=== PATIENT | female | born 1995 ===

== ENCOUNTER 2023-04-10 14:41 | Emergency (ER) | payer OTHER, SELFPAY ==
--- NOTE | ~2023-04-10 | XR_ITS ---
EXAMINATION: XR ANKLE, RIGHT XR FOOT, RIGHT CLINICAL INFORMATION: Twisted COMPARISON: None available. TECHNIQUE: 2 views of the right ankle 3 views of the right foot FINDINGS: No acute visible fracture or dislocation. Ankle mortise is symmetric. Joint spaces and alignment are maintained. Soft tissue swelling overlying the lateral malleolus. XR/XR ankle RT min 3V IMPRESSION: 1. No acute visible fracture or dislocation. 2. Soft tissue swelling overlying the lateral malleolus.
--- NOTE | ~2023-04-10 | XR_ITS ---
EXAMINATION: XR ANKLE, RIGHT XR FOOT, RIGHT CLINICAL INFORMATION: Twisted COMPARISON: None available. TECHNIQUE: 2 views of the right ankle 3 views of the right foot FINDINGS: No acute visible fracture or dislocation. Ankle mortise is symmetric. Joint spaces and alignment are maintained. Soft tissue swelling overlying the lateral malleolus. XR/XR foot RT min 3V IMPRESSION: 1. No acute visible fracture or dislocation. 2. Soft tissue swelling overlying the lateral malleolus.
[2023-04-10 14:48] VITALS: BP 101/66; PULSE 79; RESP 18; TEMP 37.1; O2SAT 96; BMI 33.8
--- NOTE | 2023-04-10 15:58 | ED_ITS ---
HPI - Extremity Injury (Lower) General Chief Complaint: Extremity Injury, Lower Stated Complaint: r foot inj Time Seen by Provider: 04/10/23 15:58 Source: patient, RN notes reviewed and old records reviewed Mode of arrival: wheelchair History of Present Illness HPI Narrative: 28-year-old female with no significant past medical history presenting to the ED complaining of right ankle pain and swelling S/P jumping up and twisting ankle on way down around 1330 today at [facility] with daughter. Admits to falling to ground, denies head trauma or LOC. Denies injury to other area. Has not been ambulatory since incident secondary to pain MD complaint: ankle injury Related Data Allergies Allergy/AdvReac Type Severity Reaction Status Date / Time milk [MILK] AdvReac Unknown GAS Unverified 04/25/20 17:03 Review of Systems Review of Systems: Constitutional: No Fever, No Chills ENT/Mouth: No Ear Pain, No Nasal Congestion, No sore throat, No Rhinorrhea, No Swallowing Difficulty Cardiovascular: No Chest Pain, No SOB Respiratory: No Cough, No Sputum, No Wheezing Musculoskeletal: + joint pain, No Myalgias, + Joint Swelling Skin: No Skin Lesions, No rash Neuro: No Weakness, No Numbness, No Paresthesias Yes all other systems are reviewed and are negative Constitutional: Constitutional: Reports as per [facility] Past Medical History Attestation statement: The following information was validated with the patient. Source: old records reviewed Social History Social History Alcohol intake: never Smoked in Last 30 Days: No Use of substances other than those prescribed or required for medical reasons: No Advance Directives: No Advance Directives Information Provided: No Physical Exam Vital Signs: Vital Signs: Last Vital Signs Temp 98.7 F 04/10/23 14:48 Pulse 80 04/10/23 17:39 Resp 17 04/10/23 17:39 BP 106/64 04/10/23 17:39 Pulse Ox 97 04/10/23 17:39 O2 Del Method Room Air 04/10/23 17:39 BMI result Body Mass Index 33.8 Const: General: cooperative, healthy appearing and no acute distress Orientation/consciousness: patient oriented x3 Limitations: no limitations HEENT: Head: Yes normal to inspection and Yes atraumatic Ears: hearing grossly normal bilaterally General nose exam: Normal external nose present Face and sinus: Yes normal facial exam Eyes: General: appearance normal, both eyes and all related structures EOM: EOMs intact bilaterally Neck: Neck: Yes normal visual inspection and Yes no meningeal signs Resp: Effort & Inspection: normal respiratory effort and no respiratory distress Cardio: Rate: regular rate Skin: Rashes: no rashes Wounds: no wounds Neuro: General: patient oriented x3, tone normal and no meningeal signs Cranial nerves: Yes CN's II-XII intact bilaterally Gait exam (Neuro): Normal gait present Extrem: Other: Right ankle with noted swelling to lateral malleolus with diffuse tenderness. Limited ROM secondary to pain. Foot, tib-fib and knee nontender. Neurovascularly intact Course Course Course Narrative: XR foot RT min 3V/XR ankle RT min 3V IMPRESSION: 1.? No acute visible fracture or dislocation. 2.? Soft tissue swelling overlying the lateral malleolus. > NEMESIO wrap and crutches supplied Results discussed with patient including worrisome signs and symptoms and strict return precautions, and when to return to the emergency department. They verbalized understanding and feel safe for discharge at this time. Medications Administered Discontinued Medications Generic Name Dose Route Start Last Admin Trade Name Freq PRN Reason Stop Dose Admin Ibuprofen 800 mg 04/10/23 17:19 04/10/23 17:34 Ibuprofen 800 Mg Tablet PO 04/10/23 17:20 Not Given ONCE ONE Medical Decision Making Medical Decision Making [facility] Narrative: 28-year-old female with no significant past medical history presenting to the ED complaining of left ankle pain and swelling S/P jumping up and twisting ankle on way down around 1330 today at [facility] with daughter. On exam vital signs stable, NAD, nontoxic appearing, physical exam as noted above with right ankle swelling and tender. Decreased ROM. Concern for sprain versus fracture. Low suspicion for septic joint/arthritis or DVT Plan: X-rays Please refer to course for remaining clinical decision making, interpretation of labs/imaging results, and discussions with consultants and/or family members. Differential Diagnosis Differential Diagnoses: The differential diagnosis associated with the presentation includes As above Independent Interpretation I performed an independent interpretation of an: Plain X-Ray Radiology Impression Discussion of test interpretation with radiology: I have reviewed the radiologist's reading. External Record Review External record reviewed: Inpatient record, Office record, Outpatient record, Prior outpatient labs, Prior outpatient radiology, Primary care record and Outside ED record Tests considered The following testing was considered but not selected: As above Prescription Management I considered prescription management with: Pain Medication Discharge Plan Discharge Clinical Impression: Ankle sprain and strain Patient Disposition: Home, Self-Care Instructions: Ankle Sprain (DC) Additional Instructions: you sprained your ankle Wear Nemesio wrap and use crutches as needed Ice and elevate Take Tylenol / Motrin for pain Follow up with her doctor If symptoms persist or worsen return to the ED Referrals: Physician,None [Primary Care Provider] - 5 days Stand Alone Forms: Work/School Release Interventions: ED Discharge Assessment Last Done: 04/10/23 17:55 Discharge Date/Time: 04/10/23 17:56
[2023-04-10 17:39] VITALS: BP 106/64; PULSE 80; RESP 17; O2SAT 97
== END 2023-04-10 17:56 | disposition home or self-care (01) ==
PROVIDERS: Emergency Provider Emergency Medicine
DX: S93.401A Sprain of unspecified ligament of right ankle, initial encounter (principal); S96.911A Strain of unspecified muscle and tendon at ankle and foot level, right foot, initial encounter; X50.1XXA Overexertion from prolonged static or awkward postures, initial encounter; Y93.89 Activity, other specified; Y92.9 Unspecified place or not applicable; Y99.9 Unspecified external cause status
CPT/HCPCS: 73610; 73630; 99283; 99284